=== PATIENT | male | born 1970 | race Caucasian/White ===

== ENCOUNTER 2022-05-07 21:59 | Emergency (ER) | payer OTHER, MEDICAID, SELFPAY ==
[2022-05-07 22:10] VITALS: BP 194/88; PULSE 104; RESP 20; TEMP 36.6; O2SAT 98
--- NOTE | 2022-05-08 00:29 | ED.ANXIETY ---
HPI - Anxiety General Chief Complaint: Anxiety Stated Complaint: emotional issues/stress Time Seen by Provider: 05/08/22 00:26 Source: patient Mode of arrival: Ambulatory Limitations: no limitations History of Present Illness HPI narrative: Patient is a 51-year-old male who is here for evaluation of anxiety and stress. Patient states that he was worried about a friend of his who lives on the streets who he could not find. He stated that when he becomes very stressed he states that his anxiety increases. Patient is somewhat tangential on answering questions. Related Data Allergies Allergy/AdvReac Type Severity Reaction Status Date / Time Penicillins Allergy Verified 05/08/22 00:44 Review of Systems Constitutional Constitutional: Reports system reviewed and no additional complaints, except as documented Psychiatric Psychiatric: Reports system reviewed and no additional complaints, except as documented Patient History Social History Smoking Status: Current every day smoker Smoking Status: Current every day smoker alcohol intake frequency: a few times a month Substance Use Type: marijuana and methamphetamine Exam Initial Vital Signs Initial Vital Signs: Vital Signs Temperature 97.9 F 05/07/22 22:10 Pulse Rate 104 H 05/07/22 22:10 Respiratory Rate 20 05/07/22 22:10 Blood Pressure 194/88 H 05/07/22 22:10 Pulse Oximetry 98 05/07/22 22:10 Oxygen Delivery Method Room Air 05/07/22 22:10 Const General: cooperative and No ill appearing HENMT Head: normal to inspection and normocephalic Resp Effort & Inspection: normal respiratory effort Cardio Rate: regular rate Neuro General: patient alert, patient awake and moves all extremities Psych Appearance: disheveled Speech and Movement: restless Mood: anxious mood Affect: animated Thought Content: no homicidality and suicidality Course Orders Ordered: Discontinued Medications Hydroxyzine Pamoate (Hydroxyzine Pamoate 25 Mg Capsule) 25 mg PO NOW ONE Stop: 05/08/22 00:31 Last Admin: 05/08/22 00:45 Dose: 25 mg Documented By: MARCIANO Vital Signs Vital signs: Vital Signs - 8 hr 05/07/22 22:10 Temperature 97.9 F Pulse Rate 104 H Respiratory Rate 20 Blood Pressure 194/88 H Pulse Oximetry 98 Oxygen Delivery Method Room Air MDM - Anxiety MDM Narrative Medical decision making narrative: Patient stated that he was feeling very anxious. He stated that Vistaril has helped him in the past and he was agreeable to this. Patient did spend a period of time sitting on the edge of the bed apparently talking to himself and then was able to lay down in the bed and rested for a period of time. He then got up and left the emergency department telling staff that he was going to go smoke. Patient was obviously feeling comfortable enough to leave and go smoke so discharge paperwork was printed. He then returned asked him to be checked back into the emergency department. I informed him that it was inappropriate for him just to stay in the emergency department to see if his friend were to show up. Patient was not suicidal. Not homicidal. I suspect that the patient has been using methamphetamine. No indication for continued observation in the emergency department. Patient was discharged. He refused to sign discharge paperwork. Discharge Plan Departure Patient Disposition: Home Clinical Impression: Anxiety Instructions: DI for Anxiety -- Adult Activity Restrictions/Additional Instructions: Recommend that you contact your primary doctor for a follow-up. Stand Alone Forms: Patient Portal/API
[2022-05-08] MEDS: hydrOXYzine pamoate 25 MG CAPSULE PO (00:45)
== END 2022-05-08 03:25 | disposition home or self-care (01) ==
PROVIDERS: Emergency Provider Emergency Medicine
DX: F41.9 Anxiety disorder, unspecified (principal)
CPT/HCPCS: 99283

== ENCOUNTER 2022-05-29 20:10 | Emergency (ER) | payer OTHER, MEDICAID, SELFPAY ==
[2022-05-29 20:18] VITALS: BP 167/93; PULSE 124; RESP 18; TEMP 37.8; O2SAT 97; BMI 28.7
--- NOTE | 2022-05-29 20:35 | ED_ITS ---
HPI - Psych General Chief Complaint: Psychiatric Symptoms Stated Complaint: anxiety Time Seen by Provider: 05/29/22 20:32 Source: patient Mode of arrival: Ambulatory History of Present Illness HPI Narrative: Patient is a 51-year-old male with a history of anxiety who is here with a friend who is also being seen in the emergency department. Patient decided to check in because of his anxiety related to his friend who is also being seen h ere. Other than the anxiety has no other specific complaints. He states that hydroxyzine has helped him in the past. Related Data Allergies Allergy/AdvReac Type Severity Reaction Status Date / Time Penicillins Allergy Verified 05/08/22 00:44 Review of Systems Cardiovascular Cardiovascular: Reports system reviewed and no additional complaints, except as documented Respiratory Respiratory: Reports system reviewed and no additional complaints, except as documented Gastrointestinal Gastrointestinal: Reports system reviewed and no additional complaints, except as documented Psychiatric Psychiatric: Reports system reviewed and no additional complaints, except as documented Patient History Social History Smoking Status: Current every day smoker Smoking Status: Current every day smoker tobacco type: cigarettes and cigars alcohol intake frequency: a few times a month Substance Use Type: does not use Exam Initial Vital Signs Initial Vital Signs: Vital Signs Temperature 100.0 F H 05/29/22 20:18 Pulse Rate 124 H 05/29/22 20:18 Respiratory Rate 18 05/29/22 20:18 Blood Pressure 167/93 H 05/29/22 20:18 Pulse Oximetry 97 05/29/22 20:18 Oxygen Delivery Method Room Air 05/29/22 20:18 HENMT Head: normal to inspection and normocephalic Resp Auscultation: clear to auscultation bilaterally Cardio Rate: regular rate Psych Other: Patient is cooperative. His obviously having some anxiety. Occasionally was tearful. Course Orders Ordered: Discontinued Medications Hydroxyzine Pamoate (Hydroxyzine Pamoate 25 Mg Capsule) 50 mg PO NOW ONE Stop: 05/29/22 20:36 Last Admin: 05/29/22 20:43 Dose: 50 mg Documented By: SRIDHAR Vital Signs Vital signs: Vital Signs - 8 hr 05/29/22 20:18 Temperature 100.0 F H Pulse Rate 124 H Respiratory Rate 18 Blood Pressure 167/93 H Pulse Oximetry 97 Oxygen Delivery Method Room Air MDM - Psych MDM Narrative Medical decision making narrative: Patient was given a dose of hydroxyzine and after period of time he states his anxiety is much better. Patient was able to show me his medications. He is prescription for olanzapine, trazodone and hydroxyzine. We went over how he should be taking these medications. He states that he does have refills of the medicines. Will discharge patient home. He was given return precautions. Discharge Plan Departure Patient Disposition: Home Clinical Impression: Acute anxiety Instructions: DI for Anxiety -- Adult Activity Restrictions/Additional Instructions: You have all of the medicines with you that you should be taking. Please take them as directed. Keep all of your scheduled medical appointments. Stand Alone Forms: Patient Portal/API
[2022-05-29] MEDS: hydrOXYzine pamoate 25 MG CAPSULE 50 MG PO (20:43)
== END 2022-05-29 22:36 | disposition home or self-care (01) ==
PROVIDERS: Emergency Provider Emergency Medicine
DX: F41.9 Anxiety disorder, unspecified (principal)
CPT/HCPCS: 99283

== ENCOUNTER 2022-07-05 21:49 | Emergency (ER) | payer OTHER, MEDICAID, SELFPAY ==
[2022-07-05 21:59] VITALS: BP 124/69; PULSE 94; RESP 18; TEMP 36.7; O2SAT 98; BMI 30.8
[2022-07-05 22:56] LABS: Add Manual Diff / Slide Review NO; Basophils Absolute Auto 100 /uL (0-100); Eosinophils Absolute Auto 100 /uL (0-450); Eosinophils Percent Auto 1.2 % (2-4); Hematocrit 38.7 % (41-53); Hemoglobin 13.4 g/dL (13.5-17.5); Lymphocytes Absolute Auto 2900 /uL (1100-4500); Lymphocytes Percent Auto 24.8 % (25-40); Mean Corpuscular HGB Conc 34.5 % (30-36); Mean Corpuscular Hemoglobin 30.3 PG (26-34); Mean Corpuscular Volume 87.6 fL (80-100); Monocytes Absolute Auto 1200 /uL (0-900); Monocytes Percent Auto 9.8 % (3-14); Neutrophils Absolute Auto 7500 /uL (1500-7000); Neutrophils Percent Auto 63.2 % (50-75); Platelet Count 328 X10^3/uL (150-400); Red Blood Cell Count 4.41 X10^6/uL (4.5-5.9); Red Cell Distribution Width 14.1 % (11.6-14.8); White Blood Cell Count 11.8 X10^3/uL (4.5-11.0)
[2022-07-05 23:00] LABS: Acetaminophen < 10 ug/mL (10-30); Alanine Aminotransferase 19 IU/L (<50); Albumin 4.2 g/dL (3.5-5.0); Albumin Globulin Ratio 1.2 (1.0-2.8); Alkaline Phosphatase 76 U/L (38-126); Aspartate Aminotransferase 30 IU/L (17-59); BUN Creatinine Ratio 27.3 (6-22); Bilirubin Total 2.5 mg/dL (0.2-1.3); Blood Urea Nitrogen 24 mg/dL (9-20); Calcium 8.7 mg/dL (8.4-10.2); Carbon Dioxide 25 mmol/L (22-32); Chloride 101 mmol/L (98-107); Estimated Glomerular Filt Rate > 60 mL/min (>60); Ethanol (ETOH) < 10 mg/dL; Globulin 3.6 g/dL (1.7-4.1); Glucose 101 mg/dL (70-100); HEMOLYSIS < 15 (0-50); Potassium 3.6 mmol/L (3.4-5.1); Salicylate < 1.0 mg/dL (<20); Sodium 136 mmol/L (137-145); Total Protein 7.8 g/dL (6.3-8.2)
[2022-07-05 23:27] LABS: Ictotest Urine Negative (Negative)
[2022-07-05 23:37] LABS: UR Morphine/Opiate cutoff 300 Negative (Negative); Ur Creatinine 50 (Normal); Ur Specific Gravity >1.030 (Normal); Urine Amphetamines Positive (Negative); Urine Barbiturates Negative (Negative); Urine Benzodiazepines Negative (Negative); Urine Cocaine Negative (Negative); Urine MDMA Positive (Negative); Urine Methadone Negative (Negative); Urine Methamphetamines Positive (Negative); Urine Phencyclidine Negative (Negative); Urine Tetrahydrocannabinol Positive (Negative); Urine Tricyclic Antidepressant Negative (Negative); Urine pH 6 (Normal)
[2022-07-05 23:38] LABS: Urine Oxycodone Negative (Negative)
[2022-07-05 23:57] LABS: Bacteria Urine None Seen; RBC Urine None Seen (0-5/HPF); WBC Urine 1-5/HPF (0-5/HPF)
[2022-07-05 23:58] LABS: Culture Indicated Urine Cult Not Indicated; Mucus Urine 2+ (Negative)
[2022-07-06] VITALS (13 sets, daily range): BP systolic 103–104; BP diastolic 59–69; PULSE 74–97; RESP 16–20; O2SAT 97–100
[2022-07-06 00:14] LABS: Free T4, Direct Thyroxine 1.63 ng/dL (0.78-2.19)
[2022-07-06 00:26] LABS: Thyroid Stimulating Hormone 4.43 uIU/mL (0.47-4.68)
--- NOTE | 2022-07-06 01:48 | PC.NURSE ---
When this tag writer asked patient why he came to the emergency department, patient replied with, I don't know. Patient does not make eye contact and will only mumble words back. Patient is visibly dischevelled.
--- NOTE | 2022-07-06 04:29 | ED_ITS ---
HPI - Psych General Chief Complaint: Toxicology Problem Stated Complaint: Mental health Time Seen by Provider: 07/06/22 01:42 Source: patient Mode of arrival: Ambulatory History of Present Illness HPI Narrative: This is a 51-year-old male with history of anxiety who is also currently homeless. Patient presents today states he did a lot of drugs including methamphetamines, he states he would a little bit of loss of time is feeling anxious and cold. Patient states no other complaints currently he is not having any thoughts of harming himself or others. He states he does occasionally have thoughts of harming himself but does not have a plan. He states he would reach out for assistance. Notes that he is currently been homeless he was living in his car but his car was taken away several days ago and he is just been walking not able to sleep for the last several days. Patient states he also does not have a coat and he has been feeling very cold. He denies any issues such as headaches, chest pain, shortness of breath, no nausea or vomiting no other GI or urinary symptoms. No numbness, tingling or weakness. Patient Related Data Allergies Allergy/AdvReac Type Severity Reaction Status Date / Time Penicillins Allergy Verified 05/08/22 00:44 Review of Systems Review of Systems ROS Unobtainable: All systems reviewed & are unremarkable except as noted in HPI and below Patient History Social History Smoking Status: Current every day smoker Smoking Status: Current every day smoker tobacco type: cigarettes and cigars alcohol intake frequency: a few times a month Substance Use Type: methamphetamine Exam Narrative Exam Narrative: GENERAL: Alert and oriented x three, disheveled. Mild distress. HEENT: Head normocephalic, atraumatic, EOMI, pupils reactive, face symmetric, moist mucous membranes NECK: Supple, full range of motion CARDIOVASCULAR: Regular rate and rhythm without murmurs, rubs or gallops. RESPIRATORY: Breath sounds equal bilaterally, no wheezes rales or rhonchi. ABDOMEN: Soft, nontender. Normoactive bowel sounds all 4 quadrants. No guarding or rebound, rigidity, no mass : No CVA tenderness EXTREMITIES: Normal range of motion, no clubbing or edema. Neurovascularly intact. NEUROLOGICAL: Cranial nerves II through XII grossly intact. Moving all extremities SKIN: Warm, dry, no petechiae, no rashes or lesions. PSYCH: Occasional suicidal thoughts, no ideation or intent currently. No homicidal thoughts. Occasional depression. No hallucinations. Initial Vital Signs Initial Vital Signs: Vital Signs Temperature 98.1 F 07/05/22 21:59 Pulse Rate 94 H 07/05/22 21:59 Respiratory Rate 18 07/05/22 21:59 Blood Pressure 124/69 07/05/22 21:59 Pulse Oximetry 98 07/05/22 21:59 Oxygen Delivery Method Room Air 07/05/22 21:59 Course Orders Ordered: ED Orders 07/05/22 22:05 Ictotest Urine Stat Urine Drug Screen, Rapid Stat Urine Microscopic Stat 07/05/22 22:07 Consult to COUNTER WAITRESS/WAITER - Vice President Of Sales Stat 07/05/22 22:30 Acetaminophen Stat Complete Blood Count AUTO DIFF Stat Comprehensive Metabolic Panel Stat Ethanol (ETOH) Stat Free T4, Direct Thyroxine Stat Salicylate Stat Thyroid Stimulating Hormone Stat Vital Signs Vital signs: Vital Signs - 8 hr 07/06/22 01:38 07/06/22 01:39 07/06/22 01:39 Pulse Rate 80 86 Respiratory Rate 16 Blood Pressure 104/69 104/69 Pulse Oximetry 100 99 07/06/22 02:00 07/06/22 02:30 07/06/22 03:00 Pulse Rate 80 80 79 Respiratory Rate 20 Blood Pressure Pulse Oximetry 99 98 98 07/06/22 03:30 07/06/22 04:00 07/06/22 04:30 Pulse Rate 80 79 78 Respiratory Rate Blood Pressure Pulse Oximetry 97 97 98 07/06/22 05:00 07/06/22 05:30 07/06/22 06:00 Pulse Rate 77 79 74 Respiratory Rate Blood Pressure Pulse Oximetry 98 97 98 07/06/22 06:30 Pulse Rate 74 Respiratory Rate 18 Blood Pressure Pulse Oximetry 97 MDM - Psych Lab Data 07/05/22 22:30 07/05/22 22:30 Labs: Lab Results 07/05/22 07/05/22 07/05/22 Range/Units 22:05 22:05 22:30 WBC 11.8 H (4.5-11.0) X10^3/uL RBC 4.41 L (4.5-5.9) X10^6/uL Hgb 13.4 L (13.5-17.5) g/dL Hct 38.7 L (41-53) % MCV 87.6 (80-100) fL MCH 30.3 (26-34) PG MCHC 34.5 (30-36) % RDW 14.1 (11.6-14.8) % Plt Count 328 (150-400) X10^3/uL Neut % (Auto) 63.2 (50-75) % Lymph % (Auto) 24.8 L (25-40) % Mobile % (Auto) 9.8 (3-14) % Eos % (Auto) 1.2 L (2-4) % Baso % (Auto) 1.0 (0-2) % Neut # (Auto) 7500 H (5147-1045) /uL Lymph # (Auto) 2900 (7412-7411) /uL Mobile # (Auto) 1200 H (0-900) /uL Eos # (Auto) 100 (0-450) /uL Baso # (Auto) 100 (0-100) /uL Sodium (137-145) mmol/L Potassium (3.4-5.1) mmol/L Chloride (98-107) mmol/L Carbon Dioxide (22-32) mmol/L BUN (9-20) mg/dL Creatinine (0.66-1.25) mg/dL Estimated GFR (>60) mL/min BUN/Creatinine Ratio (6-22) Glucose (70-100) mg/dL Calcium (8.4-10.2) mg/dL Total Bilirubin (0.2-1.3) mg/dL AST (17-59) IU/L ALT (<50) IU/L Alkaline Phosphatase (38-126) U/L Total Protein (6.3-8.2) g/dL Albumin (3.5-5.0) g/dL Globulin (1.7-4.1) g/dL Albumin/Globulin Ratio (1.0-2.8) TSH (0.47-4.68) uIU/mL Free T4 (0.78-2.19) ng/dL Ur Bilirubin Confirm Negative (Negative) Urine RBC None seen (0-5/HPF) Urine WBC 1-5/hpf (0-5/HPF) Urine Bacteria None seen (None) Urine Mucus 2+ H (Negative) Ur Culture Indicated? Cult not indicated Salicylates (<20) mg/dL U Opiates 300ng/mL cut Negative (Negative) Ur Oxycodone Screen Negative (Negative) Urine Methadone Screen Negative (Negative) Acetaminophen (10-30) ug/mL Ur Barbiturates Screen Negative (Negative) U Tricyclic Antidepress Negative (Negative) Ur Phencyclidine Scrn Negative (Negative) Ur Amphetamines Screen Positive H (Negative) U Methamphetamines Scrn Positive H (Negative) Ur MDMA Scrn (Ecstasy) Positive H (Negative) U Benzodiazepines Scrn Negative (Negative) Urine Cocaine Screen Negative (Negative) U Marijuana (THC) Screen Positive H (Negative) Ethyl Alcohol ( - 10) mg/dL 07/05/22 07/05/22 Range/Units 22:30 22:30 WBC (4.5-11.0) X10^3/uL RBC (4.5-5.9) X10^6/uL Hgb (13.5-17.5) g/dL Hct (41-53) % MCV (80-100) fL MCH (26-34) PG MCHC (30-36) % RDW (11.6-14.8) % Plt Count (150-400) X10^3/uL Neut % (Auto) (50-75) % Lymph % (Auto) (25-40) % Mobile % (Auto) (3-14) % Eos % (Auto) (2-4) % Baso % (Auto) (0-2) % Neut # (Auto) (9386-5161) /uL Lymph # (Auto) (9742-1762) /uL Mobile # (Auto) (0-900) /uL Eos # (Auto) (0-450) /uL Baso # (Auto) (0-100) /uL Sodium 136 L (137-145) mmol/L Potassium 3.6 (3.4-5.1) mmol/L Chloride 101 (98-107) mmol/L Carbon Dioxide 25 (22-32) mmol/L BUN 24 H (9-20) mg/dL Creatinine 0.88 (0.66-1.25) mg/dL Estimated GFR > 60 (>60) mL/min BUN/Creatinine Ratio 27.3 H (6-22) Glucose 101 H (70-100) mg/dL Calcium 8.7 (8.4-10.2) mg/dL Total Bilirubin 2.5 H (0.2-1.3) mg/dL AST 30 (17-59) IU/L ALT 19 (<50) IU/L Alkaline Phosphatase 76 (38-126) U/L Total Protein 7.8 (6.3-8.2) g/dL Albumin 4.2 (3.5-5.0) g/dL Globulin 3.6 (1.7-4.1) g/dL Albumin/Globulin Ratio 1.2 (1.0-2.8) TSH 4.43 (0.47-4.68) uIU/mL Free T4 1.63 (0.78-2.19) ng/dL Ur Bilirubin Confirm (Negative) Urine RBC (0-5/HPF) Urine WBC (0-5/HPF) Urine Bacteria (None) Urine Mucus (Negative) Ur Culture Indicated? Salicylates < 1.0 (<20) mg/dL U Opiates 300ng/mL cut (Negative) Ur Oxycodone Screen (Negative) Urine Methadone Screen (Negative) Acetaminophen < 10 (10-30) ug/mL Ur Barbiturates Screen (Negative) U Tricyclic Antidepress (Negative) Ur Phencyclidine Scrn (Negative) Ur Amphetamines Screen (Negative) U Methamphetamines Scrn (Negative) Ur MDMA Scrn (Ecstasy) (Negative) U Benzodiazepines Scrn (Negative) Urine Cocaine Screen (Negative) U Marijuana (THC) Screen (Negative) Ethyl Alcohol < 10 ( - 10) mg/dL Urine Dip Bedside Urine Glucose Negative Bedside Urine Bilirubin + 1 Bedside Urine Ketone +/- 5 Urine Specific [place] 1.03 Bedside Urine Occult Blood - Negative Bedside Urine pH 6 Bedside Urine Protein + 30 Bedside Urine Urobilinogen 1+ 2mg Bedside Urine Nitrite - Negative Bedside Urine Leukocytes - Negative Esterase MDM Narrative Medical decision making narrative: 51-year-old male with history of substance abuse, chronic homelessness who is had suicidal thoughts but no active intent or active thought currently. Patient is medically cleared he seeking more resources does not feel that he needs inpatient stay currently. Patient signed out to Dr. Knott while awaiting [facility] evaluation.
[2022-07-06] MEDS: LORazepam 0.5 MG TABLET 1 MG PO (10:41)
[2022-07-06] MEDS: OLANZapine ODT 10 MG TAB PO (11:08)
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
== END 2022-07-06 18:30 | disposition home or self-care (01) ==
PROVIDERS: Emergency Medicine; Emergency Provider Emergency Medicine
DX: F19.10 Other psychoactive substance abuse, uncomplicated (principal)
CPT/HCPCS: 36415; 80053; 80305; 80320; 80329; 81003; 81015; 84439; 84443; 85025; 99284; G0480

== ENCOUNTER 2022-08-21 04:34 | Emergency (ER) | payer OTHER, MEDICAID, SELFPAY ==
[2022-08-21 04:39] VITALS: BP 142/81; PULSE 89; RESP 18; TEMP 36.1; O2SAT 99; BMI 29.4
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
[2022-08-21 05:15] LABS: Ur Creatinine 200 (Normal); Ur Specific Gravity >1.025 (Normal); Urine pH 5 (Normal)
[2022-08-21 05:16] LABS: UR Morphine/Opiate cutoff 300 Negative (Negative); Urine Amphetamines Positive (Negative); Urine Barbiturates Negative (Negative); Urine Benzodiazepines Negative (Negative); Urine Cocaine Negative (Negative); Urine MDMA Positive (Negative); Urine Methadone Negative (Negative); Urine Methamphetamines Positive (Negative); Urine Oxycodone Negative (Negative); Urine Phencyclidine Negative (Negative); Urine Tetrahydrocannabinol Positive (Negative); Urine Tricyclic Antidepressant Negative (Negative)
== END 2022-08-21 05:24 | disposition home or self-care (01) ==
PROVIDERS: Emergency Provider Emergency Medicine
DX: F15.90 Other stimulant use, unspecified, uncomplicated (principal)
CPT/HCPCS: 80305; 99281; 99282

== ENCOUNTER 2022-08-26 02:11 | Emergency (ER) | payer OTHER, MEDICAID, SELFPAY ==
[2022-08-26 02:21] VITALS: BP 107/73; PULSE 87; RESP 18; TEMP 36.3; O2SAT 100; BMI 28.7
[2022-08-26 03:53] LABS: Add Manual Diff / Slide Review NO; Basophils Absolute Auto 100 /uL (0-100); Basophils Percent Auto 0.8 % (0-2); Eosinophils Absolute Auto 100 /uL (0-450); Eosinophils Percent Auto 1.5 % (2-4); Hematocrit 35.8 % (41-53); Hemoglobin 12.4 g/dL (13.5-17.5); Lymphocytes Absolute Auto 2500 /uL (1100-4500); Lymphocytes Percent Auto 27.5 % (25-40); Mean Corpuscular HGB Conc 34.6 % (30-36); Mean Corpuscular Volume 89.4 fL (80-100); Monocytes Absolute Auto 800 /uL (0-900); Monocytes Percent Auto 8.3 % (3-14); Neutrophils Absolute Auto 5700 /uL (1500-7000); Neutrophils Percent Auto 61.9 % (50-75); Platelet Count 354 X10^3/uL (150-400); Red Blood Cell Count 4.01 X10^6/uL (4.5-5.9); Red Cell Distribution Width 13.8 % (11.6-14.8); White Blood Cell Count 9.2 X10^3/uL (4.5-11.0)
[2022-08-26 04:05] LABS: Alanine Aminotransferase 17 IU/L (<50); Albumin 3.8 g/dL (3.5-5.0); Albumin Globulin Ratio 1.3 (1.0-2.8); Alkaline Phosphatase 67 U/L (38-126); Aspartate Aminotransferase 21 IU/L (17-59); BUN Creatinine Ratio 19.8 (6-22); Bilirubin Total 1.1 mg/dL (0.2-1.3); Blood Urea Nitrogen 18 mg/dL (9-20); Calcium 8.7 mg/dL (8.4-10.2); Carbon Dioxide 27 mmol/L (22-32); Chloride 102 mmol/L (98-107); Estimated Glomerular Filt Rate > 60 mL/min (>60); Ethanol (ETOH) < 10 mg/dL; Globulin 2.9 g/dL (1.7-4.1); Glucose 97 mg/dL (70-100); HEMOLYSIS < 15 (0-50); Potassium 3.6 mmol/L (3.4-5.1); Sodium 135 mmol/L (137-145); Total Protein 6.7 g/dL (6.3-8.2)
--- NOTE | 2022-08-26 04:25 | ED.PSYCH ---
HPI - Psych <Yvonne Reeves DO - Last Filed: 08/26/22 19:28> General Chief Complaint: Psychiatric Symptoms Stated Complaint: suicide thoughts Time Seen by Provider: 08/26/22 02:49 Source: patient Mode of arrival: Ambulatory History of Present Illness HPI Narrative: Patient is a 52-year-old male history of polysubstance abuse including methamphetamines and homelessness presents today feeling suicidal. He states that he would like to jump in front of cars. He reports that he has been working under cover and has been forced to take fentanyl and methamphetamine. His girlfriend has recently been incarcerated and she is not coming out. He reports that the police keep harassing him. He is tearful and loud. He says sometimes he hears voices not hearing voices now. He is willing to go to a mental health and detox facility. Related Data Allergies Allergy/AdvReac Type Severity Reaction Status Date / Time Penicillins Allergy Verified 05/08/22 00:44 Review of Systems <DO Miri Barajas Last Filed: 08/26/22 19:28> Review of Systems ROS Unobtainable: All systems reviewed & are unremarkable except as noted in HPI and below Patient History <Yvonne Reeves DO - Last Filed: 08/26/22 19:28> Social History Smoking Status: Current every day smoker Smoking Status: Current every day smoker tobacco type: cigarettes and cigars alcohol intake frequency: a few times a month Substance Use Type: methamphetamine Exam <DO Miri Barajas Last Filed: 08/26/22 19:28> Initial Vital Signs Initial Vital Signs: Vital Signs Temperature 97.4 F L 08/26/22 02:21 Pulse Rate 87 08/26/22 02:21 Respiratory Rate 18 08/26/22 02:21 Blood Pressure 107/73 08/26/22 02:21 Pulse Oximetry 100 08/26/22 02:21 Oxygen Delivery Method Room Air 08/26/22 02:21 GENERAL: Tearful, cooperative extremely poor hygiene CARDIOVASCULAR: peripheral pulses in tact, cap refill <2 sec RESPIRATORY: No respiratory distress, speaks in full sentences without difficulty EXTREMITIES: Normal range of motion, no clubbing or edema. Neurovascularly intact NEUROLOGICAL: Cranial nerves II through XII grossly intact. Normal gait and speech. SKIN: Warm, dry, no petechiae, no rashes or lesions. PSYCH: Thoughts of suicide with current intent no homicidal thoughts some audio hallucinations, mild paranoia, good insight <Patel Knott DO - Last Filed: 08/26/22 11:01> Initial Vital Signs Initial Vital Signs: Vital Signs Temperature 97.4 F L 08/26/22 02:21 Pulse Rate 87 08/26/22 02:21 Respiratory Rate 18 08/26/22 02:21 Blood Pressure 107/73 08/26/22 02:21 Pulse Oximetry 100 08/26/22 02:21 Oxygen Delivery Method Room Air 08/26/22 02:21 Course <Yvonne Reeves DO - Last Filed: 08/26/22 19:28> Orders Ordered: Discontinued Medications Lorazepam (Lorazepam 0.5 Mg Tablet) 1 mg PO NOW ONE Stop: 08/26/22 09:12 Last Admin: 08/26/22 09:19 Dose: 1 mg Documented By: JAVAD Vital Signs Vital signs: Vital Signs - 8 hr 08/26/22 02:21 Temperature 97.4 F L Pulse Rate 87 Respiratory Rate 18 Blood Pressure 107/73 Pulse Oximetry 100 Oxygen Delivery Method Room Air <Patel Knott DO - Last Filed: 08/26/22 11:01> Orders Ordered: Discontinued Medications Lorazepam (Lorazepam 0.5 Mg Tablet) 1 mg PO NOW ONE Stop: 08/26/22 09:12 Last Admin: 08/26/22 09:19 Dose: 1 mg Documented By: JAVAD Vital Signs Vital signs: Vital Signs - 8 hr 08/26/22 02:21 Temperature 97.4 F L Pulse Rate 87 Respiratory Rate 18 Blood Pressure 107/73 Pulse Oximetry 100 Oxygen Delivery Method Room Air MDM - Psych <Yvonne Reeves DO - Last Filed: 08/26/22 19:28> Lab Data 08/26/22 03:40 08/26/22 03:40 Labs: Lab Results 08/26/22 08/26/22 08/26/22 Range/Units 03:40 03:40 03:40 WBC 9.2 (4.5-11.0) X10^3/uL RBC 4.01 L (4.5-5.9) X10^6/uL Hgb 12.4 L (13.5-17.5) g/dL Hct 35.8 L (41-53) % MCV 89.4 (80-100) fL MCH 31.0 (26-34) PG MCHC 34.6 (30-36) % RDW 13.8 (11.6-14.8) % Plt Count 354 (150-400) X10^3/uL Neut % (Auto) 61.9 (50-75) % Lymph % (Auto) 27.5 (25-40) % [place] % (Auto) 8.3 (3-14) % Eos % (Auto) 1.5 L (2-4) % Baso % (Auto) 0.8 (0-2) % Neut # (Auto) 5700 (6438-7365) /uL Lymph # (Auto) 2500 (1114-6072) /uL [place] # (Auto) 800 (0-900) /uL Eos # (Auto) 100 (0-450) /uL Baso # (Auto) 100 (0-100) /uL Sodium 135 L (137-145) mmol/L Potassium 3.6 (3.4-5.1) mmol/L Chloride 102 (98-107) mmol/L Carbon Dioxide 27 (22-32) mmol/L BUN 18 (9-20) mg/dL Creatinine 0.91 (0.66-1.25) mg/dL Estimated GFR > 60 (>60) mL/min BUN/Creatinine Ratio 19.8 (6-22) Glucose 97 (70-100) mg/dL Calcium 8.7 (8.4-10.2) mg/dL Total Bilirubin 1.1 (0.2-1.3) mg/dL AST 21 (17-59) IU/L ALT 17 (<50) IU/L Alkaline Phosphatase 67 (38-126) U/L Total Protein 6.7 (6.3-8.2) g/dL Albumin 3.8 (3.5-5.0) g/dL Globulin 2.9 (1.7-4.1) g/dL Albumin/Globulin Ratio 1.3 (1.0-2.8) TSH 3.53 (0.47-4.68) uIU/mL U Opiates 300ng/mL cut (Negative) Ur Oxycodone Screen (Negative) Urine Methadone Screen (Negative) Ur Barbiturates Screen (Negative) U Tricyclic Antidepress (Negative) Ur Phencyclidine Scrn (Negative) Ur Amphetamines Screen (Negative) U Methamphetamines Scrn (Negative) Ur MDMA Scrn (Ecstasy) (Negative) U Benzodiazepines Scrn (Negative) Urine Cocaine Screen (Negative) U Marijuana (THC) Screen (Negative) Ethyl Alcohol < 10 ( - 10) mg/dL 08/26/22 Range/Units 06:45 WBC (4.5-11.0) X10^3/uL RBC (4.5-5.9) X10^6/uL Hgb (13.5-17.5) g/dL Hct (41-53) % MCV (80-100) fL MCH (26-34) PG MCHC (30-36) % RDW (11.6-14.8) % Plt Count (150-400) X10^3/uL Neut % (Auto) (50-75) % Lymph % (Auto) (25-40) % [place] % (Auto) (3-14) % Eos % (Auto) (2-4) % Baso % (Auto) (0-2) % Neut # (Auto) (5194-0073) /uL Lymph # (Auto) (5780-6240) /uL [place] # (Auto) (0-900) /uL Eos # (Auto) (0-450) /uL Baso # (Auto) (0-100) /uL Sodium (137-145) mmol/L Potassium (3.4-5.1) mmol/L Chloride (98-107) mmol/L Carbon Dioxide (22-32) mmol/L BUN (9-20) mg/dL Creatinine (0.66-1.25) mg/dL Estimated GFR (>60) mL/min BUN/Creatinine Ratio (6-22) Glucose (70-100) mg/dL Calcium (8.4-10.2) mg/dL Total Bilirubin (0.2-1.3) mg/dL AST (17-59) IU/L ALT (<50) IU/L Alkaline Phosphatase (38-126) U/L Total Protein (6.3-8.2) g/dL Albumin (3.5-5.0) g/dL Globulin (1.7-4.1) g/dL Albumin/Globulin Ratio (1.0-2.8) TSH (0.47-4.68) uIU/mL U Opiates 300ng/mL cut Negative (Negative) Ur Oxycodone Screen Negative (Negative) Urine Methadone Screen Negative (Negative) Ur Barbiturates Screen Negative (Negative) U Tricyclic Antidepress Negative (Negative) Ur Phencyclidine Scrn Negative (Negative) Ur Amphetamines Screen Positive H (Negative) U Methamphetamines Scrn Positive H (Negative) Ur MDMA Scrn (Ecstasy) Negative (Negative) U Benzodiazepines Scrn Negative (Negative) Urine Cocaine Screen Negative (Negative) U Marijuana (THC) Screen Positive H (Negative) Ethyl Alcohol ( - 10) mg/dL Urine Dip Bedside Urine Glucose Negative Bedside Urine Bilirubin - Negative Bedside Urine Ketone - Negative Urine Specific [place] 1.03 Bedside Urine Occult Blood - Negative Bedside Urine pH 5.5 Bedside Urine Protein - Negative Bedside Urine Urobilinogen - Negative Bedside Urine Nitrite - Negative Bedside Urine Leukocytes - Negative Esterase MDM Narrative Medical decision making narrative: Patient 52-year-old male currently voluntary for detox or mental facility. Does not meet involuntary criteria. Patient has such poor hygiene and foul smell that he showered in the emergency department. Patient has been sleeping and cooperative. Signed out to Dr. Knott for further disposition. <Patel Knott, - Last Filed: 08/26/22 11:01> Lab Data Labs: Lab Results 08/26/22 08/26/22 08/26/22 Range/Units 03:40 03:40 03:40 WBC 9.2 (4.5-11.0) X10^3/uL RBC 4.01 L (4.5-5.9) X10^6/uL Hgb 12.4 L (13.5-17.5) g/dL Hct 35.8 L (41-53) % MCV 89.4 (80-100) fL MCH 31.0 (26-34) PG MCHC 34.6 (30-36) % RDW 13.8 (11.6-14.8) % Plt Count 354 (150-400) X10^3/uL Neut % (Auto) 61.9 (50-75) % Lymph % (Auto) 27.5 (25-40) % [place] % (Auto) 8.3 (3-14) % Eos % (Auto) 1.5 L (2-4) % Baso % (Auto) 0.8 (0-2) % Neut # (Auto) 5700 (9570-8833) /uL Lymph # (Auto) 2500 (8236-2575) /uL [place] # (Auto) 800 (0-900) /uL Eos # (Auto) 100 (0-450) /uL Baso # (Auto) 100 (0-100) /uL Sodium 135 L (137-145) mmol/L Potassium 3.6 (3.4-5.1) mmol/L Chloride 102 (98-107) mmol/L Carbon Dioxide 27 (22-32) mmol/L BUN 18 (9-20) mg/dL Creatinine 0.91 (0.66-1.25) mg/dL Estimated GFR > 60 (>60) mL/min BUN/Creatinine Ratio 19.8 (6-22) Glucose 97 (70-100) mg/dL Calcium 8.7 (8.4-10.2) mg/dL Total Bilirubin 1.1 (0.2-1.3) mg/dL AST 21 (17-59) IU/L ALT 17 (<50) IU/L Alkaline Phosphatase 67 (38-126) U/L Total Protein 6.7 (6.3-8.2) g/dL Albumin 3.8 (3.5-5.0) g/dL Globulin 2.9 (1.7-4.1) g/dL Albumin/Globulin Ratio 1.3 (1.0-2.8) TSH 3.53 (0.47-4.68) uIU/mL U Opiates 300ng/mL cut (Negative) Ur Oxycodone Screen (Negative) Urine Methadone Screen (Negative) Ur Barbiturates Screen (Negative) U Tricyclic Antidepress (Negative) Ur Phencyclidine Scrn (Negative) Ur Amphetamines Screen (Negative) U Methamphetamines Scrn (Negative) Ur MDMA Scrn (Ecstasy) (Negative) U Benzodiazepines Scrn (Negative) Urine Cocaine Screen (Negative) U Marijuana (THC) Screen (Negative) Ethyl Alcohol < 10 ( - 10) mg/dL 08/26/22 Range/Units 06:45 WBC (4.5-11.0) X10^3/uL RBC (4.5-5.9) X10^6/uL Hgb (13.5-17.5) g/dL Hct (41-53) % MCV (80-100) fL MCH (26-34) PG MCHC (30-36) % RDW (11.6-14.8) % Plt Count (150-400) X10^3/uL Neut % (Auto) (50-75) % Lymph % (Auto) (25-40) % [place] % (Auto) (3-14) % Eos % (Auto) (2-4) % Baso % (Auto) (0-2) % Neut # (Auto) (1999-9809) /uL Lymph # (Auto) (0945-7588) /uL [place] # (Auto) (0-900) /uL Eos # (Auto) (0-450) /uL Baso # (Auto) (0-100) /uL Sodium (137-145) mmol/L Potassium (3.4-5.1) mmol/L Chloride (98-107) mmol/L Carbon Dioxide (22-32) mmol/L BUN (9-20) mg/dL Creatinine (0.66-1.25) mg/dL Estimated GFR (>60) mL/min BUN/Creatinine Ratio (6-22) Glucose (70-100) mg/dL Calcium (8.4-10.2) mg/dL Total Bilirubin (0.2-1.3) mg/dL AST (17-59) IU/L ALT (<50) IU/L Alkaline Phosphatase (38-126) U/L Total Protein (6.3-8.2) g/dL Albumin (3.5-5.0) g/dL Globulin (1.7-4.1) g/dL Albumin/Globulin Ratio (1.0-2.8) TSH (0.47-4.68) uIU/mL U Opiates 300ng/mL cut Negative (Negative) Ur Oxycodone Screen Negative (Negative) Urine Methadone Screen Negative (Negative) Ur Barbiturates Screen Negative (Negative) U Tricyclic Antidepress Negative (Negative) Ur Phencyclidine Scrn Negative (Negative) Ur Amphetamines Screen Positive H (Negative) U Methamphetamines Scrn Positive H (Negative) Ur MDMA Scrn (Ecstasy) Negative (Negative) U Benzodiazepines Scrn Negative (Negative) Urine Cocaine Screen Negative (Negative) U Marijuana (THC) Screen Positive H (Negative) Ethyl Alcohol ( - 10) mg/dL Urine Dip Bedside Urine Glucose Negative Bedside Urine Bilirubin - Negative Bedside Urine Ketone - Negative Urine Specific [place] 1.03 Bedside Urine Occult Blood - Negative Bedside Urine pH 5.5 Bedside Urine Protein - Negative Bedside Urine Urobilinogen - Negative Bedside Urine Nitrite - Negative Bedside Urine Leukocytes - Negative Esterase MDM Narrative Medical decision making narrative: Patient 52-year-old male currently voluntary for detox or mental facility. Does not meet involuntary criteria. Patient has such poor hygiene and foul smell that he showered in the emergency department. Patient has been sleeping and cooperative. Signed out to Dr. Knott for further disposition. Dr knott: Received turned over. If patient's history and physical exam. This morning patient states that he was feeling very anxious and was also still feeling suicidal. He was concerned that his bradycardia been stolen. He has does to call the police. The police did come to the emergency department to take a statement. The patient has been ambulatory. Is clinically sober. Is tolerating oral intake. At approximately 1100 hours patient stated that he was no longer feeling suicidal. He states that he did have a ride coming to the emergency department pick him up. He would like to be discharged. Patient currently does not meet criteria for an an involuntary detainment. Will discharge patient. Discharge Plan Departure Patient Disposition: Home Clinical Impression: Methamphetamine use Instructions: Substance Use Disorder Activity Restrictions/Additional Instructions: No driving for the next 24 hours or in the future if you partake in intoxicating substances. Return to the emergency department for new symptoms. Stand Alone Forms: Patient Portal/API
--- NOTE | 2022-08-26 04:31 | PC.NURSE ---
Pt encouraged to take a shower. Pt agreed to shower and brush teeth. fresh paper scrubs, deodorant and brief provided. Pt returned to room [facility], warm blankets provided.
[2022-08-26 04:44] LABS: TSH w/ Reflex to FT4 3.53 uIU/mL (0.47-4.68)
[2022-08-26 06:58] LABS: UR Morphine/Opiate cutoff 300 Negative (Negative); Ur Creatinine Normal (Normal); Ur Specific Gravity Normal (Normal); Urine Amphetamines Positive (Negative); Urine Barbiturates Negative (Negative); Urine Benzodiazepines Negative (Negative); Urine Cocaine Negative (Negative); Urine MDMA Negative (Negative); Urine Methadone Negative (Negative); Urine Methamphetamines Positive (Negative); Urine Oxycodone Negative (Negative); Urine Phencyclidine Negative (Negative); Urine Tetrahydrocannabinol Positive (Negative); Urine Tricyclic Antidepressant Negative (Negative); Urine pH Normal (Normal)
[2022-08-26] MEDS: LORazepam 0.5 MG TABLET 1 MG PO (09:19)
--- NOTE | 2022-08-26 09:35 | PC.NURSE ---
[employer] at bedside talking with pt, at pt's request. Pt currently is calm, will monitor for any escalation in pt behaviors
--- NOTE | 2022-08-26 11:08 | PC.NURSE ---
pt states he is no longer suicidal, Dr. Knott notified, pt discharged
== END 2022-08-26 11:09 | disposition home or self-care (01) ==
PROVIDERS: Emergency Medicine; Emergency Provider Emergency Medicine
DX: F15.10 Other stimulant abuse, uncomplicated (principal); R45.851 Suicidal ideations
CPT/HCPCS: 36415; 80053; 80305; 80320; 81003; 84443; 85025; 99284

== ENCOUNTER 2022-09-03 07:18 | Emergency (ER) | payer OTHER, MEDICAID, SELFPAY ==
[2022-09-03 07:23] VITALS: BP 182/88; PULSE 97; RESP 16; TEMP 37.2; O2SAT 97; BMI 30.1
--- NOTE | 2022-09-03 08:12 | DI.RAD.S_ITS ---
PROCEDURE: XR CHEST 1V INDICATIONS: SOB TECHNIQUE: One view of the chest was acquired. COMPARISON: [facility], CR, XR CHEST 1 VIEW, 04/19/2021, 20:37. FINDINGS: Surgical changes and devices: None. Lungs and pleura: Lungs are clear. No pleural effusions or pneumothorax. Mediastinum: Mediastinal contours appear normal. Heart size is normal. Bones and chest wall: No suspicious bony lesions. Overlying soft tissues appear unremarkable. IMPRESSION: No acute cardiopulmonary pathology. Dictated by: Jose Rodriguez M.D. on 09/03/2022 at 8:39 Approved by: Jose Rodriguez M.D. on 09/03/2022 at 8:39
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
--- NOTE | 2022-09-03 08:53 | PC.NURSE ---
assessed by MD without RN involvement
== END 2022-09-03 08:54 | disposition home or self-care (01) ==
PROVIDERS: Emergency Provider Emergency Medicine
DX: R06.02 Shortness of breath (principal)
CPT/HCPCS: 71045; 99282

== ENCOUNTER 2022-09-20 22:35 | Emergency (ER) | payer OTHER, MEDICAID, SELFPAY ==
[2022-09-20 23:00] VITALS: BP 150/80; PULSE 90; RESP 18; TEMP 36.6; O2SAT 98; BMI 28.7
--- NOTE | 2022-09-21 00:41 | ED.ANXIETY ---
HPI - Anxiety General Chief Complaint: Anxiety Stated Complaint: ate edibles- feels unsafe. Time Seen by Provider: 09/21/22 00:04 Source: patient Mode of arrival: EMS History of Present Illness HPI narrative: Patient is a 52-year-old male. Well known to myself in this department. He is homeless and has history of drug abuse. He is brought in by EMS stating that he ?does not feel safe? this is a common presentation for him. He stated that he did do meth and also opioids. It was initially reported that he also had some marijuana edibles and afterwards started to feel very anxious but he states that they were just ?regular cookies? he also states that he is having nausea. Related Data Allergies Allergy/AdvReac Type Severity Reaction Status Date / Time Penicillins Allergy Verified 05/08/22 00:44 Review of Systems Gastrointestinal Gastrointestinal: Reports system reviewed and no additional complaints, except as documented Psychiatric Psychiatric: Reports system reviewed and no additional complaints, except as documented Patient History Social History Smoking Status: Current every day smoker Smoking Status: Current every day smoker tobacco type: cigarettes and cigars alcohol intake frequency: a few times a month Substance Use Type: opiates and methamphetamine Exam Initial Vital Signs Initial Vital Signs: Vital Signs Temperature 98 F 09/20/22 23:00 Pulse Rate 90 09/20/22 23:00 Respiratory Rate 18 09/20/22 23:00 Blood Pressure 150/80 H 09/20/22 23:00 Pulse Oximetry 98 09/20/22 23:00 Oxygen Delivery Method Room Air 09/20/22 23:00 Resp Effort & Inspection: normal respiratory effort Cardio Rate: regular rate GI Inspection: normal to inspection Psych Appearance: disheveled Speech and Movement: pressured speech Course Orders Ordered: Discontinued Medications Ondansetron HCl (Ondansetron 4 Mg Odt) 4 mg SL NOW ONE Stop: 09/21/22 00:42 Vital Signs Vital signs: Vital Signs - 8 hr 09/20/22 23:00 Temperature 98 F Pulse Rate 90 Respiratory Rate 18 Blood Pressure 150/80 H Pulse Oximetry 98 Oxygen Delivery Method Room Air MDM - Anxiety MDM Narrative Medical decision making narrative: Patient is disheveled which is his baseline. He does admit to smoking methamphetamine and also doing opioids. His exam is unremarkable. Will provide nausea medication. Will discharge patient home. Discharge Plan Departure Patient Disposition: Home Clinical Impression: Nausea Instructions: DI for Nausea -- Adult Referrals: Miscellaneous,Doctor, MD [Primary Care Provider] - Stand Alone Forms: Patient Portal/API
[2022-09-21] MEDS: ONDANSETRON 4 MG ODT SL (00:52)
== END 2022-09-21 01:05 | disposition home or self-care (01) ==
PROVIDERS: Emergency Provider Emergency Medicine
DX: R11.0 Nausea (principal); F11.10 Opioid abuse, uncomplicated
CPT/HCPCS: 99282; 99283

== ENCOUNTER 2022-09-28 19:51 | Emergency (ER) | payer OTHER, MEDICAID, SELFPAY ==
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
== END 2022-09-28 20:17 | disposition left against medical advice (07) ==
PROVIDERS: Emergency Provider Emergency Medicine
DX: R45.1 Restlessness and agitation (principal)
CPT/HCPCS: 99281

== ENCOUNTER 2022-11-16 19:48 | Emergency (ER) | payer OTHER, MEDICAID, SELFPAY ==
[2022-11-16] MEDS: diphenhydrAMINE 50 MG/ML VIAL IM (20:19)
[2022-11-16 20:20] VITALS: BP 176/129; PULSE 134; RESP 17; TEMP 37.1; O2SAT 97
[2022-11-16] MEDS: HALOPERIDOL 5 MG/ML VIAL IM (20:20)
[2022-11-16] MEDS: LORazepam 2 MG/ML INJ IM (20:20)
[2022-11-16 21:00] VITALS: BP 112/79; PULSE 107; RESP 18; O2SAT 95
--- NOTE | 2022-11-16 21:00 | PC.NURSE ---
Pt released from police custody at this time. No longer handcuffed. Pt appears subdued. Resting on stretcher. No longer yelling obscenities. 1:[address]
[2022-11-16 21:10] LABS: Add Manual Diff / Slide Review NO; Basophils Absolute Auto 100 /uL (0-100); Basophils Percent Auto 0.6 % (0-2); Eosinophils Absolute Auto 0 /uL (0-450); Eosinophils Percent Auto 0.3 % (2-4); Hematocrit 39.2 % (41-53); Hemoglobin 13.3 g/dL (13.5-17.5); Lymphocytes Absolute Auto 1300 /uL (1100-4500); Lymphocytes Percent Auto 14.7 % (25-40); Mean Corpuscular Hemoglobin 30.5 PG (26-34); Mean Corpuscular Volume 89.6 fL (80-100); Monocytes Absolute Auto 1000 /uL (0-900); Monocytes Percent Auto 11.3 % (3-14); Neutrophils Absolute Auto 6600 /uL (1500-7000); Neutrophils Percent Auto 73.1 % (50-75); Platelet Count 254 X10^3/uL (150-400); Red Blood Cell Count 4.37 X10^6/uL (4.5-5.9); Red Cell Distribution Width 13.7 % (11.6-14.8)
[2022-11-16 21:22] LABS: Alanine Aminotransferase 28 IU/L (<50); Albumin 4.2 g/dL (3.5-5.0); Albumin Globulin Ratio 1.3 (1.0-2.8); Alkaline Phosphatase 82 U/L (38-126); Aspartate Aminotransferase 55 IU/L (17-59); BUN Creatinine Ratio 18.1 (6-22); Bilirubin Total 2.3 mg/dL (0.2-1.3); Blood Urea Nitrogen 17 mg/dL (9-20); Calcium 9.6 mg/dL (8.4-10.2); Carbon Dioxide 19 mmol/L (22-32); Chloride 111 mmol/L (98-107); Estimated Glomerular Filt Rate > 60 mL/min (>60); Ethanol (ETOH) < 10 mg/dL; Globulin 3.2 g/dL (1.7-4.1); Glucose 143 mg/dL (70-100); Potassium 3.9 mmol/L (3.4-5.1); Sodium 141 mmol/L (137-145); Total Protein 7.4 g/dL (6.3-8.2)
[2022-11-16 21:24] LABS: HEMOLYSIS 51 (0-50)
[2022-11-16 23:28] VITALS: BP 101/64; PULSE 84; RESP 14; O2SAT 97
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
[2022-11-17 01:39] LABS: Appearance Urine UA CLEAR; Bilirubin Urine UA NEGATIVE (NEGATIVE); Glucose Urine UA NEGATIVE (Negative); Ketones Urine UA NEGATIVE (NEGATIVE); Leukocyte Esterase Urine UA NEGATIVE (NEGATIVE); Nitrite Urine UA NEGATIVE (Negative); Occult Blood Urine UA NEGATIVE (Negative); Protein Urine UA TRACE (Negative); Specific Gravity Urine UA >=1.030 (1.000-1.035); pH Urine UA 5.5 (4.5-8.0)
[2022-11-17 01:40] LABS: UR Morphine/Opiate cutoff 300 Negative (Negative); Ur Creatinine Normal (Normal); Ur Specific Gravity Normal (Normal); Urine Amphetamines Positive (Negative); Urine Barbiturates Negative (Negative); Urine Cocaine Negative (Negative); Urine MDMA Negative (Negative); Urine Methamphetamines Positive (Negative); Urine Phencyclidine Negative (Negative); Urine Tetrahydrocannabinol Positive (Negative); Urine pH Normal (Normal)
[2022-11-17 01:41] LABS: Urine Benzodiazepines Positive (Negative); Urine Methadone Negative (Negative); Urine Oxycodone Negative (Negative); Urine Tricyclic Antidepressant Negative (Negative)
[2022-11-17 01:42] LABS: Color Urine UA Dark Yellow
[2022-11-17 01:46] LABS: Amorphous Sediment Urine 1+; Bacteria Urine None Seen; Hyaline Casts Urine 0-1/LPF; Mucus Urine 2+ (Negative); RBC Urine 0-1/HPF (0-5/HPF); Squamous Epithelial Cell Urine 0-1 /HPF (0-5/HPF); WBC Urine 0-1/HPF (0-5/HPF)
[2022-11-17 01:47] LABS: Culture Indicated Urine Cult Not Indicated
== END 2022-11-17 05:19 | disposition home or self-care (01) ==
PROVIDERS: Emergency Provider Emergency Medicine
DX: F23 Brief psychotic disorder (principal)
CPT/HCPCS: 36415; 80053; 80305; 80320; 81001; 81003; 85025; 96372; 99284; J1200; J1630; J2060

== ENCOUNTER 2022-12-07 02:49 | Emergency (ER) | payer OTHER, MEDICAID, SELFPAY ==
--- NOTE | 2022-12-07 03:46 | PC.NURSE ---
Per registration, pt seen left with another patient. Vehicle no longer in hospital parking lot.
== END 2022-12-07 03:47 | disposition left against medical advice (07) ==
PROVIDERS: Emergency Provider Emergency Medicine

== ENCOUNTER 2022-12-15 04:21 | Emergency (ER) | payer OTHER, MEDICAID, SELFPAY ==
[2022-12-15 04:28] VITALS: BP 177/100; PULSE 107; RESP 18; TEMP 36.1; O2SAT 98; BMI 28.7
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
[2022-12-15] MEDS: hydrOXYzine pamoate 25 MG CAPSULE PO (04:42)
[2022-12-15 05:12] VITALS: BP 129/91; PULSE 96; RESP 18; O2SAT 100
== END 2022-12-15 05:14 | disposition home or self-care (01) ==
PROVIDERS: Emergency Provider Emergency Medicine
DX: F41.9 Anxiety disorder, unspecified (principal)
CPT/HCPCS: 99283

== ENCOUNTER 2022-12-21 13:02 | Emergency (ER) | payer OTHER, MEDICAID, SELFPAY ==
[2022-12-21 13:03] VITALS: BP 170/94; PULSE 92; RESP 16; TEMP 36.6; O2SAT 100
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
== END 2022-12-21 13:23 | disposition home or self-care (01) ==
PROVIDERS: Emergency Provider Emergency Medicine
DX: T50.905A Adverse effect of unspecified drugs, medicaments and biological substances, initial encounter (principal)
CPT/HCPCS: 99281

== ENCOUNTER 2022-12-21 14:08 | Emergency (ER) | payer OTHER, MEDICAID, SELFPAY ==
[2022-12-21 14:14] VITALS: PULSE 89; RESP 16; TEMP 36.8; O2SAT 100
--- NOTE | 2022-12-21 14:18 | PC.NURSE ---
Pt states that he needs to see another pt currently in ED for purposes of his investigation. Verbally aggressive when redirected.
--- NOTE | 2022-12-21 15:43 | ED.RECABL ---
HPI - Recheck/Abnormal Lab/Rx General Chief Complaint: Recheck/Abnormal Lab/Rx Stated Complaint: not feeling well/did bad drugs Time Seen by Provider: 12/21/22 14:17 Source: patient Mode of arrival: Ambulatory History of Present Illness HPI narrative: Patient 52-year-old male returns wanting to be evaluated. He is concerned that he ingested drugs. He is a known methamphetamine and opiate abuser. He is also asking questions again about his girlfriend who is in in the ED. Vitals again are stable. At this time he is medically cleared and screening exam is done. Related Data Allergies Allergy/AdvReac Type Severity Reaction Status Date / Time Penicillins Allergy Verified 11/16/22 20:20 Review of Systems Review of Systems ROS Unobtainable: All systems reviewed & are unremarkable except as noted in HPI and below Patient History Social History Smoking Status: Current every day smoker Smoking Status: Current every day smoker tobacco type: cigarettes and cigars alcohol intake frequency: a few times a month Substance Use Type: opiates and methamphetamine Exam Initial Vital Signs Initial Vital Signs: Vital Signs Temperature 98.2 F 12/21/22 14:14 Pulse Rate 89 12/21/22 14:14 Respiratory Rate 16 12/21/22 14:14 Pulse Oximetry 100 12/21/22 14:14 Oxygen Delivery Method Room Air 12/21/22 14:14 GENERAL: Disheveled erratic CARDIOVASCULAR: peripheral pulses in tact, cap refill <2 sec RESPIRATORY: No respiratory distress, speaks in full sentences without difficulty ABDOMEN: Soft, nontender, no guarding or rebound EXTREMITIES: Normal range of motion, no clubbing or edema. Neurovascularly intact NEUROLOGICAL: Cranial nerves II through XII grossly intact. Normal gait and speech. SKIN: Warm, dry, no petechiae, no rashes or lesions. Course Vital Signs Vital signs: Vital Signs - 8 hr 12/21/22 14:14 Temperature 98.2 F Pulse Rate 89 Respiratory Rate 16 Pulse Oximetry 100 Oxygen Delivery Method Room Air MDM - Recheck/Abnormal Lab/Rx MDM Narrative Medical decision making narrative: Patient vitals are stable concerned about drugs he ingested and his girlfriend who is in the ED. He is already been removed by police once today. He has no obvious medical emergency or complaint. Medical screening exam is complete. Discharge Plan Departure Patient Disposition: Home Clinical Impression: No problem, feared complaint unfounded Referrals: Miscellaneous,Doctor, MD [Primary Care Provider] - Stand Alone Forms: Patient Portal/API
== END 2022-12-21 14:18 | disposition home or self-care (01) ==
PROVIDERS: Emergency Provider Emergency Medicine
DX: T50.905A Adverse effect of unspecified drugs, medicaments and biological substances, initial encounter (principal)
CPT/HCPCS: 99281; 99282

== ENCOUNTER 2022-12-23 01:38 | Emergency (ER) | payer OTHER, MEDICAID, SELFPAY ==
--- NOTE | 2022-12-23 01:53 | PC.NURSE ---
Escorted from facility by [employer].
--- NOTE | 2022-12-23 01:58 | ED.PSYCH ---
HPI - Psych General Chief Complaint: Psychiatric Symptoms Stated Complaint: emotional crisis Time Seen by Provider: 12/23/22 01:58 History of Present Illness HPI Narrative: 52-year-old male presents with for evaluation. Patient describes suicidal ideation. Was here 2 times during day. Has a history of methamphetamine and opiate abuse. Patient is concerned about his girlfriend who is also known to the department. Patient states he has suicidal thoughts, denies intent. He does not wish for inpatient placement. He states he would like to spend the night here. Patient is medically cleared. Related Data Allergies Allergy/AdvReac Type Severity Reaction Status Date / Time Penicillins Allergy Verified 11/16/22 20:20 Review of Systems Review of Systems ROS Unobtainable: All systems reviewed & are unremarkable except as noted in HPI and below Patient History Social History Smoking Status: Current every day smoker Smoking Status: Current every day smoker tobacco type: cigarettes and cigars alcohol intake frequency: a few times a month Substance Use Type: opiates and methamphetamine Exam Narrative Exam Narrative: GENERAL: Alert and oriented x three, disheveled. HEENT: Head normocephalic, atraumatic, EOMI, pupils reactive, face symmetric, moist mucous membranes NECK: Supple, full range of motion CARDIOVASCULAR: Cap refill less than 2 seconds. RESPIRATORY: No respiratory distress, speaks in full sentences. EXTREMITIES: Normal range of motion, Neurovascularly intact NEUROLOGICAL: Cranial nerves II through XII grossly intact. Moving all extremities. Normal gait. SKIN: Warm, dry, no petechiae, no rashes or lesions. PSYCH: Suicidal ideation, does not describe intent. MDM - Psych MDM Narrative Medical decision making narrative: Patient seen and evaluated, patient presents with 3rd visit in the last 24 hours, patient states his suicidal ideation, denies any intent. Denies intent to harm others. Patient does not meet criteria at this time for some voluntary placement. He is not seeking voluntary placement. He does request does sleep for the night in the emergency department. Patient medically cleared. Discharge Plan Departure Patient Disposition: Home Clinical Impression: Suicidal thoughts Referrals: Miscellaneous,Doctor, [Primary Care Provider] - Stand Alone Forms: Patient Portal/API
== END 2022-12-23 02:00 | disposition home or self-care (01) ==
PROVIDERS: Emergency Provider Emergency Medicine
DX: R45.851 Suicidal ideations (principal)

== ENCOUNTER 2022-12-23 08:00 | Emergency (ER) | payer OTHER, MEDICAID, SELFPAY ==
[2022-12-23 08:08] VITALS: BP 120/79; PULSE 93; RESP 16; TEMP 36.6; O2SAT 99; BMI 24.3
--- NOTE | 2022-12-23 08:16 | ED.PSYCH ---
HPI - Psych General Chief Complaint: Psychiatric Symptoms Stated Complaint: side effects of drug use but not using Time Seen by Provider: 12/23/22 08:16 History of Present Illness HPI Narrative: Patient 52-year-old male well known to myself in this facility history of substance abuse, he has been seen here 3 times in the last 2 days this is his 4th visit. He was seen early this morning around 2:00 a.m. with some suicidal ideations. Today he is denying any suicidal ideation and homicidal ideation. He reports having hallucinations he is quite tearful. He does not want placement he feels like he has been exposed to drugs but denies any current drug use. I saw him twice 2 days ago this is a very different presentation than 2 days ago. But not wanting inpatient treatment. Related Data Allergies Allergy/AdvReac Type Severity Reaction Status Date / Time Penicillins Allergy Verified 11/16/22 20:20 Patient History Social History Smoking Status: Current every day smoker Smoking Status: Current every day smoker tobacco type: cigarettes and cigars alcohol intake frequency: a few times a month Substance Use Type: opiates and methamphetamine Exam Initial Vital Signs Initial Vital Signs: Vital Signs Temperature 98 F 12/23/22 08:08 Pulse Rate 93 H 12/23/22 08:08 Respiratory Rate 16 12/23/22 08:08 Blood Pressure 120/79 12/23/22 08:08 Pulse Oximetry 99 12/23/22 08:08 Oxygen Delivery Method Room Air 12/23/22 08:08 GENERAL: Alert tearful 52-year-old male slightly disheveled, but seems clean CARDIOVASCULAR: peripheral pulses in tact, cap refill <2 sec RESPIRATORY: No respiratory distress, speaks in full sentences without difficulty EXTREMITIES: Normal range of motion, no clubbing or edema. Neurovascularly intact NEUROLOGICAL: Cranial nerves II through XII grossly intact. Normal gait and speech. SKIN: Warm, dry, no petechiae, no rashes or lesions. Course Vital Signs Vital signs: Vital Signs - 8 hr 12/23/22 08:08 Temperature 98 F Pulse Rate 93 H Respiratory Rate 16 Blood Pressure 120/79 Pulse Oximetry 99 Oxygen Delivery Method Room Air MDM - Psych MDM Narrative Medical decision making narrative: Patient having increased ED visits tearful today different than he was 2 days ago. Not wanting inpatient treatment not suicidal or homicidal at this time though he was earlier this morning. Encouraged him detox gave him [facility] resources. Not gravely disabled at this time. Vitals are stable he is afebrile. Discharge Plan Departure Patient Disposition: Home Clinical Impression: Acute paranoia, Drug use disorder Instructions: DI for Substance Use Disorder Activity Restrictions/Additional Instructions: *You have been diagnosed with paranoia *What to do: At this time I strongly encourage you to go to detox and reach out to [facility]. You have been given resources for both *Continue to take medications as directed *Follow up with your primary care provider in 2-3 days or call [phone] *Return to ER if you should have any new, worsening or concerning symptoms Referrals: Theresa,Doctor, [Primary Care Provider] - Stand Alone Forms: Patient Portal/API
== END 2022-12-23 08:25 | disposition home or self-care (01) ==
PROVIDERS: Emergency Provider Emergency Medicine
DX: F22 Delusional disorders (principal); F19.90 Other psychoactive substance use, unspecified, uncomplicated
CPT/HCPCS: 99281; 99283

== ENCOUNTER 2023-02-25 17:35 | Emergency (ER) | payer OTHER, MEDICAID, SELFPAY ==
[2023-02-25 17:42] VITALS: BP 165/78; PULSE 89; RESP 16; TEMP 36.4; O2SAT 98; BMI 28.7
[2023-02-25 18:53] LABS: COVID19 -Nasal RAPID Negative (Negative)
--- NOTE | 2023-02-25 19:44 | ED.NAVMDI ---
HPI - Nausea/Vomiting/Diarrhea General Chief complaint: Nausea/Vomiting/Diarrhea Stated complaint: vomiting Time Seen by Provider: 02/25/23 19:23 Source: patient Mode of arrival: Ambulatory History of Present Illness HPI Narrative: Patient is a 52-year-old male. He was well known to my self. He is an individual that has housing stability and also known drug abuse. He states that he was concerned that maybe he has COVID. No chest pain or shortness of breath for sore throat although he has had some nausea and vomiting. No abdominal pain. No skin rashes. He was here in the emergency department with a family member decided to check in to get ?checked out? Related Data Allergies Allergy/AdvReac Type Severity Reaction Status Date / Time Penicillins Allergy Verified 11/16/22 20:20 Review of Systems Constitutional Constitutional: Reports system reviewed and no additional complaints, except as documented ENT Ears, Nose, Mouth, and Throat: Reports system reviewed and no additional complaints, except as documented Respiratory Respiratory: Reports system reviewed and no additional complaints, except as documented Gastrointestinal Gastrointestinal: Reports system reviewed and no additional complaints, except as documented Musculoskeletal Musculoskeletal: Reports system reviewed and no additional complaints, except as documented Integumentary/Breasts Skin/Breast: Reports system reviewed and no additional complaints, except as documented Patient History Social History Smoking Status: Current every day smoker Smoking Status: Current every day smoker tobacco type: cigarettes and cigars alcohol intake frequency: a few times a month Substance Use Type: opiates and methamphetamine Exam Initial Vital Signs Initial Vital Signs: Vital Signs Temperature 97.6 F 02/25/23 17:42 Pulse Rate 89 02/25/23 17:42 Respiratory Rate 16 02/25/23 17:42 Blood Pressure 165/78 H 02/25/23 17:42 Pulse Oximetry 98 02/25/23 17:42 Oxygen Delivery Method Room Air 02/25/23 17:42 HENMT Head: normal to inspection and normocephalic Resp Effort & Inspection: normal respiratory effort Auscultation: clear to auscultation bilaterally Cardio Rate: regular rate Rhythm: regular rhythm GI Inspection: normal to inspection and non-distended Skin General: no rashes or lesions noted Neuro General: patient alert and patient awake Extrem General: normal to inspection Course Orders Ordered: ED Orders 02/25/23 17:54 COVID19 -Nasal RAPID Stat Discontinued Medications Ondansetron HCl (Ondansetron 4 Mg Odt) 4 mg SL NOW ONE Stop: 02/25/23 19:45 Last Admin: 02/25/23 19:50 Dose: 4 mg Documented By: BASHIR Ondansetron HCl (Ondansetron 4 Mg Odt Prepack) 1 bottle MISC DIRECTED ONE Stop: 02/25/23 19:45 Last Admin: 02/25/23 19:50 Dose: 1 bottle Documented By: BASHIR Vital Signs Vital signs: Vital Signs - 8 hr 02/25/23 17:42 Temperature 97.6 F Pulse Rate 89 Respiratory Rate 16 Blood Pressure 165/78 H Pulse Oximetry 98 Oxygen Delivery Method Room Air MDM - Nausea/Vomiting/Diarrhea Lab Data Attestation: I reviewed the patient's lab results. Labs: Lab Results 02/25/23 Range/Units 17:54 SARS-CoV-2 (PCR) Negative (Negative) MDM Narrative Medical decision making narrative: Patient is COVID negative. Has a benign exam. Unremarkable vital signs. Will send home with a prescription for Zofran. No indication for labs or IV fluids. He is not clinically dehydrated. Patient expressed his gratitude for checking for COVID. He was very calm during this visit. He was given return precautions. He expressed understanding and agreement with plan. Discharge Plan Departure Patient Disposition: Home Clinical Impression: Nausea Instructions: DI for Nausea -- Adult Activity Restrictions/Additional Instructions: Recommend you use the Zofran/ondansetron as needed for the nausea. Also recommend a bland diet. Return to the emergency department for new symptoms. Referrals: Miscellaneous,Doctor, [Primary Care Provider] - Stand Alone Forms: Patient Portal/API
[2023-02-25] MEDS: ONDANSETRON 4 MG ODT SL (19:50)
[2023-02-25] MEDS: ONDANSETRON 4 MG ODT PREPACK 1 BOTTLE MISC (19:50)
== END 2023-02-25 19:53 | disposition home or self-care (01) ==
PROVIDERS: Emergency Provider Emergency Medicine
DX: R11.0 Nausea (principal); Z20.822 Contact with and (suspected) exposure to COVID-19
CPT/HCPCS: 87635; 99283; C9803

== ENCOUNTER 2023-03-01 00:18 | Emergency (ER) | payer OTHER, MEDICAID, SELFPAY ==
[2023-03-01 00:29] VITALS: BP 153/110; PULSE 124; RESP 18; TEMP 35.7; O2SAT 100; BMI 28.7
== END 2023-03-01 00:38 | disposition left against medical advice (07) ==
PROVIDERS: Emergency Provider Emergency Medicine
CPT/HCPCS: 99281

== ENCOUNTER 2023-04-08 14:38 | Emergency (ER) | payer OTHER, MEDICAID, SELFPAY ==
[2023-04-08 14:45] VITALS: BP 127/81; PULSE 96; RESP 22; TEMP 36.3; O2SAT 100; BMI 26.5
[2023-04-08] MEDS: ONDANSETRON 4 MG ODT PO (15:55)
[2023-04-08 17:44] LABS: Add Manual Diff / Slide Review NO; Basophils Absolute Auto 100 /uL (0-100); Basophils Percent Auto 0.7 % (0-2); Eosinophils Absolute Auto 300 /uL (0-450); Eosinophils Percent Auto 2.7 % (2-4); Hematocrit 39.2 % (41-53); Hemoglobin 13.3 g/dL (13.5-17.5); Lymphocytes Absolute Auto 1500 /uL (1100-4500); Lymphocytes Percent Auto 15.4 % (25-40); Mean Corpuscular Hemoglobin 29.9 PG (26-34); Mean Corpuscular Volume 88.1 fL (80-100); Monocytes Absolute Auto 800 /uL (0-900); Monocytes Percent Auto 8.4 % (3-14); Neutrophils Absolute Auto 7100 /uL (1500-7000); Neutrophils Percent Auto 72.8 % (50-75); Platelet Count 255 X10^3/uL (150-400); Red Blood Cell Count 4.45 X10^6/uL (4.5-5.9); Red Cell Distribution Width 13.9 % (11.6-14.8); White Blood Cell Count 9.7 X10^3/uL (4.5-11.0)
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
[2023-04-08 17:57] LABS: Alanine Aminotransferase 14 IU/L (<50); Albumin 3.9 g/dL (3.5-5.0); Albumin Globulin Ratio 1.2 (1.0-2.8); Alkaline Phosphatase 79 U/L (38-126); Aspartate Aminotransferase 22 IU/L (17-59); BUN Creatinine Ratio 33.8 (6-22); Bilirubin Total 0.8 mg/dL (0.2-1.3); Blood Urea Nitrogen 27 mg/dL (9-20); Calcium 8.7 mg/dL (8.4-10.2); Carbon Dioxide 25 mmol/L (22-32); Chloride 104 mmol/L (98-107); Estimated Glomerular Filt Rate > 60 mL/min (>60); Globulin 3.2 g/dL (1.7-4.1); Glucose 97 mg/dL (70-100); HEMOLYSIS < 15 (0-50); Potassium 4.1 mmol/L (3.4-5.1); Sodium 137 mmol/L (137-145); Total Protein 7.1 g/dL (6.3-8.2)
[2023-04-08 18:25] LABS: Ur Creatinine Normal (Normal); Ur Specific Gravity Normal (Normal); Urine pH Normal (Normal)
[2023-04-08 18:26] LABS: UR Morphine/Opiate cutoff 300 Negative (Negative); Urine Amphetamines Positive (Negative); Urine Barbiturates Negative (Negative); Urine Benzodiazepines Negative (Negative); Urine Cocaine Negative (Negative); Urine MDMA Negative (Negative); Urine Methadone Negative (Negative); Urine Methamphetamines Positive (Negative); Urine Oxycodone Negative (Negative); Urine Phencyclidine Negative (Negative); Urine Tetrahydrocannabinol Positive (Negative); Urine Tricyclic Antidepressant Negative (Negative)
--- NOTE | 2023-04-08 18:34 | ED.NAVMDI ---
HPI - Nausea/Vomiting/Diarrhea General Chief complaint: Nausea/Vomiting/Diarrhea Stated complaint: dizzy/dont feel right/covered in S Time Seen by Provider: 04/08/23 18:07 Source: patient Mode of arrival: Ambulatory History of Present Illness HPI Narrative: Patient is a 52-year-old male history of methamphetamine abuse, housing instability living in his car presenting today with explosive diarrhea and nausea. He was feeling little bit dizzy. Nursing reports that he was covered in stool and required showering in the ED. his clothes have likely been thrown out and he has been given paper scrubs. He has not had any further vomiting or diarrhea here in the ED. social work interviewed him and he is at his baseline paranoia. He denies any suicidal or homicidal ideations. He is overall feeling a bit bryan.r Related Data Previous Rx's Medication Instructions Recorded ondansetron 4 mg disintegrating 4 mg PO Q8H PRN nausea and 04/08/23 tablet vomiting #20 tabs Allergies Allergy/AdvReac Type Severity Reaction Status Date / Time Penicillins Allergy Verified 11/16/22 20:20 Patient History Social History Smoking Status: Current every day smoker Smoking Status: Current every day smoker tobacco type: cigarettes and cigars alcohol intake frequency: a few times a month Substance Use Type: opiates and methamphetamine Exam Initial Vital Signs Initial Vital Signs: Vital Signs Temperature 97.3 F L 04/08/23 14:45 Pulse Rate 96 H 04/08/23 14:45 Respiratory Rate 22 04/08/23 14:45 Blood Pressure 127/81 04/08/23 14:45 Pulse Oximetry 100 04/08/23 14:45 Oxygen Delivery Method Room Air 04/08/23 14:45 GENERAL: Alert now clean 52-year-old male HEENT: Head atraumatic,EOMI, pupils reactive, face symmetric, moist mucous membranes CARDIOVASCULAR: Regular rate and rhythm without murmurs, rubs or gallops. RESPIRATORY: Breath sounds equal bilaterally, no wheezes rales or rhonchi. ABDOMEN: Soft, nontender. Normoactive bowel sounds all 4 quadrants. No guarding or rebound. EXTREMITIES: Normal range of motion, no clubbing or edema. Neurovascularly intact NEUROLOGICAL: Moving all extremities no gross deficits SKIN: Warm, dry, no laceration, no petechiae, no rashes or lesions. Course Orders Ordered: ED Orders 04/08/23 17:35 CBC Auto Diff [Complete Blood Count AUTO DIFF] Stat Comprehensive Metabolic Panel Stat 04/08/23 18:07 Ictotest Urine Stat Urine Drug Screen, Rapid Stat Discontinued Medications Ondansetron HCl (Ondansetron 4 Mg Odt) 4 mg PO NOW ONE Stop: 04/08/23 15:51 Last Admin: 04/08/23 15:55 Dose: 4 mg Documented By: NGUYEN Ondansetron HCl (Ondansetron 4 Mg Odt Prepack) 1 bottle MISC DIRECTED ONE Stop: 04/08/23 18:52 Last Admin: 04/08/23 19:11 Dose: 1 bottle Documented By: NGUYEN Vital Signs Vital signs: Vital Signs - 8 hr 04/08/23 18:43 04/08/23 18:47 Pulse Rate 76 Blood Pressure 117/70 Pulse Oximetry 100 Oxygen Delivery Method Room Air MDM - Nausea/Vomiting/Diarrhea Lab Data 04/08/23 17:35 04/08/23 17:35 Labs: Lab Results 04/08/23 04/08/23 Range/Units 17:35 18:07 WBC 9.7 (4.5-11.0) X10^3/uL RBC 4.45 L (4.5-5.9) X10^6/uL Hgb 13.3 L (13.5-17.5) g/dL Hct 39.2 L (41-53) % MCV 88.1 (80-100) fL MCH 29.9 (26-34) PG MCHC 34.0 (30-36) % RDW 13.9 (11.6-14.8) % Plt Count 255 (150-400) X10^3/uL Neut % (Auto) 72.8 (50-75) % Lymph % (Auto) 15.4 L (25-40) % [place] % (Auto) 8.4 (3-14) % Eos % (Auto) 2.7 (2-4) % Baso % (Auto) 0.7 (0-2) % Neut # (Auto) 7100 H (5828-9615) /uL Lymph # (Auto) 1500 (7569-2170) /uL [place] # (Auto) 800 (0-900) /uL Eos # (Auto) 300 (0-450) /uL Baso # (Auto) 100 (0-100) /uL Sodium 137 (137-145) mmol/L Potassium 4.1 (3.4-5.1) mmol/L Chloride 104 (98-107) mmol/L Carbon Dioxide 25 (22-32) mmol/L BUN 27 H (9-20) mg/dL Creatinine 0.80 (0.66-1.25) mg/dL Estimated GFR > 60 (>60) mL/min BUN/Creatinine Ratio 33.8 H (6-22) Glucose 97 (70-100) mg/dL Calcium 8.7 (8.4-10.2) mg/dL Total Bilirubin 0.8 (0.2-1.3) mg/dL AST 22 (17-59) IU/L ALT 14 (<50) IU/L Alkaline Phosphatase 79 (38-126) U/L Total Protein 7.1 (6.3-8.2) g/dL Albumin 3.9 (3.5-5.0) g/dL Globulin 3.2 (1.7-4.1) g/dL Albumin/Globulin Ratio 1.2 (1.0-2.8) Ur Bilirubin Confirm TNP U Opiates 300ng/mL cut Negative (Negative) Ur Oxycodone Screen Negative (Negative) Urine Methadone Screen Negative (Negative) Ur Barbiturates Screen Negative (Negative) U Tricyclic Antidepress Negative (Negative) Ur Phencyclidine Scrn Negative (Negative) Ur Amphetamines Screen Positive H (Negative) U Methamphetamines Scrn Positive H (Negative) Ur MDMA Scrn (Ecstasy) Negative (Negative) U Benzodiazepines Scrn Negative (Negative) Urine Cocaine Screen Negative (Negative) U Marijuana (THC) Screen Positive H (Negative) Urine pH Normal (Normal) Urine Specific [place] Normal (Normal) Ur Creatinine Normal (Normal) Urine Dip Bedside Urine Glucose Negative Bedside Urine Bilirubin + 1 Bedside Urine Ketone - Negative Urine Specific [place] 1.030 Bedside Urine Occult Blood - Negative Bedside Urine pH 6.0 Bedside Urine Protein - Negative Bedside Urine Urobilinogen - Negative Bedside Urine Nitrite - Negative Bedside Urine Leukocytes - Negative Esterase MDM Narrative Medical decision making narrative: Patient 52-year-old male presents today with nausea vomiting diarrhea. Apparently he was having significant diarrhea. Vitals are stable. He has been showered and cleaned given clean clothes. Blood work has been reviewed he has no evidence of electrolyte abnormality, he has some mild JOE with a BUN of 27 and a creatinine of 0.8. He is drinking fluids. He has no anemia or leukocytosis. He has not tachycardic or hypotensive. This time he has given a prepack of Zofran and a prescription. Instructed to increase fluids as tolerated. Seems to be at his baseline paranoia but not currently expressing paranoid now. Evaluated by social work does not meet inpatient or involuntary criteria. Discharge Plan Departure Patient Disposition: Home Clinical Impression: Gastroenteritis Instructions: DI for Viral Gastroenteritis -- Adult Activity Restrictions/Additional Instructions: *You have been diagnosed with gastroenteritis *What to do: At this time increase fluids as tolerated. Recommend Gatorade, Pedialyte, water, juice *Continue to take medications as directed Zofran 4 mg every 8 hours if needed for nausea or vomiting-- [facility] *Follow up with your primary care provider in 2-3 days or call [phone] *Return to ER if you should have persistent vomiting and diarrhea, not tolerating fluids, passing or any new, worsening or concerning symptoms Prescriptions: New ondansetron 4 mg tablet,disintegrating 4 mg PO Q8H PRN (Reason: nausea and vomiting) Qty: 20 0RF Referrals: Miscellaneous,Doctor, [Primary Care Provider] - Stand Alone Forms: Patient Portal/API
--- NOTE | 2023-04-08 18:41 | PC.NURSE ---
patient came into today because hes been having nausea, and diarrhea for 8-12 hours. he had stool on him at time of intake to the ED. He was given a shower and new paper scrubs and has been cleaned up.
[2023-04-08 18:43] VITALS: PULSE 76; O2SAT 100
[2023-04-08 18:47] VITALS: BP 117/70
[2023-04-08] MEDS: ONDANSETRON 4 MG ODT PREPACK 1 BOTTLE MISC (19:11)
== END 2023-04-08 19:23 | disposition home or self-care (01) ==
PROVIDERS: Emergency Medicine; Emergency Provider Emergency Medicine
DX: K52.9 Noninfective gastroenteritis and colitis, unspecified (principal)
CPT/HCPCS: 36415; 80053; 80305; 81003; 85025; 99283; 99284

== ENCOUNTER 2023-04-09 22:50 | Emergency (ER) | payer OTHER, MEDICAID, SELFPAY ==
[2023-04-09 22:55] VITALS: BP 171/99; PULSE 100; RESP 16; TEMP 37.1; O2SAT 97; BMI 26.6
[2023-04-09 23:46] LABS: Ur Creatinine Normal (Normal); Ur Specific Gravity Normal (Normal); Urine Tetrahydrocannabinol Positive (Negative); Urine pH Normal (Normal)
[2023-04-09 23:47] LABS: UR Morphine/Opiate cutoff 300 Negative (Negative); Urine Amphetamines Positive (Negative); Urine Barbiturates Negative (Negative); Urine Benzodiazepines Negative (Negative); Urine Cocaine Negative (Negative); Urine MDMA Negative (Negative); Urine Methadone Negative (Negative); Urine Methamphetamines Positive (Negative); Urine Oxycodone Negative (Negative); Urine Phencyclidine Negative (Negative); Urine Tricyclic Antidepressant Negative (Negative)
[2023-04-10 00:02] LABS: Alanine Aminotransferase 15 IU/L (<50); Albumin 4.1 g/dL (3.5-5.0); Albumin Globulin Ratio 1.3 (1.0-2.8); Alkaline Phosphatase 69 U/L (38-126); Aspartate Aminotransferase 20 IU/L (17-59); BUN Creatinine Ratio 18.2 (6-22); Blood Urea Nitrogen 16 mg/dL (9-20); Carbon Dioxide 27 mmol/L (22-32); Chloride 105 mmol/L (98-107); Estimated Glomerular Filt Rate > 60 mL/min (>60); Ethanol (ETOH) < 10 mg/dL; Globulin 3.2 g/dL (1.7-4.1); Glucose 126 mg/dL (70-100); HEMOLYSIS < 15 (0-50); Potassium 4.1 mmol/L (3.4-5.1); Sodium 138 mmol/L (137-145); Total Protein 7.3 g/dL (6.3-8.2)
[2023-04-10 00:07] LABS: Add Manual Diff / Slide Review NO; Basophils Absolute Auto 0 /uL (0-100); Basophils Percent Auto 0.5 % (0-2); Eosinophils Absolute Auto 0 /uL (0-450); Eosinophils Percent Auto 0.5 % (2-4); Hematocrit 38.9 % (41-53); Hemoglobin 13.2 g/dL (13.5-17.5); Lymphocytes Absolute Auto 2300 /uL (1100-4500); Lymphocytes Percent Auto 27.1 % (25-40); Mean Corpuscular HGB Conc 33.8 % (30-36); Mean Corpuscular Hemoglobin 30.2 PG (26-34); Mean Corpuscular Volume 89.2 fL (80-100); Monocytes Absolute Auto 600 /uL (0-900); Monocytes Percent Auto 7.7 % (3-14); Neutrophils Absolute Auto 5400 /uL (1500-7000); Neutrophils Percent Auto 64.2 % (50-75); Platelet Count 281 X10^3/uL (150-400); Red Blood Cell Count 4.36 X10^6/uL (4.5-5.9); Red Cell Distribution Width 13.9 % (11.6-14.8); White Blood Cell Count 8.4 X10^3/uL (4.5-11.0)
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
[2023-04-10 00:42] LABS: TSH w/ Reflex to FT4 2.35 uIU/mL (0.47-4.68)
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
[2023-04-10 04:26] LABS: COVID19 -Nasal RAPID Negative (Negative)
[2023-04-10 07:57] VITALS: PULSE 88; RESP 18; O2SAT 98
--- NOTE | 2023-04-10 07:57 | PC.NURSE ---
Pt given a snack bag to take with him, sandwich w/ milk and pudding.
--- NOTE | 2023-04-10 07:59 | PC.NURSE ---
Pt given resources for treatment centers and housing.
== END 2023-04-10 07:59 | disposition home or self-care (01) ==
PROVIDERS: Emergency Provider Emergency Medicine
DX: F20.9 Schizophrenia, unspecified (principal); F15.10 Other stimulant abuse, uncomplicated; F32.A Depression, unspecified; Z20.822 Contact with and (suspected) exposure to COVID-19
CPT/HCPCS: 36415; 80053; 80305; 80320; 81003; 84443; 85025; 87635; 99284

== ENCOUNTER 2023-08-03 00:38 | Emergency (ER) | payer OTHER, MEDICAID, SELFPAY ==
[2023-08-03 00:40] VITALS: BP 170/88; PULSE 108; RESP 16; TEMP 37.3; O2SAT 99; BMI 27.2
--- NOTE | 2023-08-03 01:32 | PC.NURSE ---
ELECTRIC MOTOR REPAIRMAN note: Patient's belongings are in locker six with his name
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
[2023-08-03 02:23] LABS: Ur Creatinine Normal (Normal); Ur Specific Gravity Normal (Normal); Urine Amphetamines Positive (Negative); Urine Cocaine Negative (Negative); Urine Methamphetamines Positive (Negative); Urine Opiates Negative (Negative); Urine Phencyclidine Negative (Negative); Urine THC Negative (Negative); Urine pH Normal (Normal)
[2023-08-03 02:24] LABS: Urine Barbiturates Negative (Negative); Urine Benzodiazepines Negative (Negative); Urine MDMA Positive (Negative)
[2023-08-03 02:25] LABS: Urine Methadone Negative (Negative); Urine Oxycodone Negative (Negative); Urine Tricyclic Antidepressant Negative (Negative)
[2023-08-03 02:29] LABS: Appearance Urine UA CLEAR; Bilirubin Urine UA NEGATIVE (NEGATIVE); Color Urine UA YELLOW; Glucose Urine UA NEGATIVE (Negative); Ketones Urine UA TRACE (NEGATIVE); Leukocyte Esterase Urine UA NEGATIVE (NEGATIVE); Nitrite Urine UA NEGATIVE (Negative); Occult Blood Urine UA NEGATIVE (Negative); Protein Urine UA 1+ (Negative); Specific Gravity Urine UA >=1.030 (1.000-1.035)
[2023-08-03 02:34] LABS: Bacteria Urine None Seen; Culture Indicated Urine Cult Not Indicated; RBC Urine None Seen (0-5/HPF); Squamous Epithelial Cell Urine 0-1 /HPF (0-5/HPF); Urine Volume 10mL (spun); WBC Urine None Seen (0-5/HPF)
[2023-08-03 02:40] LABS: Add Manual Diff / Slide Review NO; Basophils Absolute Auto 100 /uL (0-100); Basophils Percent Auto 0.5 % (0-2); Eosinophils Absolute Auto 100 /uL (0-450); Eosinophils Percent Auto 0.8 % (2-4); Hematocrit 36.1 % (41-53); Hemoglobin 12.1 g/dL (13.5-17.5); Lymphocytes Absolute Auto 1200 /uL (1100-4500); Lymphocytes Percent Auto 11.1 % (25-40); Mean Corpuscular HGB Conc 33.6 % (30-36); Mean Corpuscular Hemoglobin 29.9 PG (26-34); Mean Corpuscular Volume 89.1 fL (80-100); Monocytes Absolute Auto 1600 /uL (0-900); Monocytes Percent Auto 15.1 % (3-14); Neutrophils Absolute Auto 7900 /uL (1500-7000); Neutrophils Percent Auto 72.5 % (50-75); Platelet Count 283 X10^3/uL (150-400); Red Blood Cell Count 4.06 X10^6/uL (4.5-5.9); Red Cell Distribution Width 14.1 % (11.6-14.8); White Blood Cell Count 10.9 X10^3/uL (4.5-11.0)
--- NOTE | 2023-08-03 02:50 | PC.NURSE ---
This RN to bedside to speak to pt after he states that he is upset that he lost his friend. Pt states that he wants his life to end and wants this Rn to help him end his life. Pt stating that he has lost everything due to the voices in his head. This RN administering Ativan and putting pt on pulse ox and BP cuff.
[2023-08-03] MEDS: LORazepam 2 MG/ML INJ IV (03:01)
[2023-08-03 03:35] LABS: Acetaminophen < 10 ug/mL (10-30); Alanine Aminotransferase 33 IU/L (<50); Albumin 4.6 g/dL (3.5-5.0); Albumin Globulin Ratio 1.5 (1.0-2.8); Alkaline Phosphatase 75 U/L (38-126); Aspartate Aminotransferase 55 IU/L (17-59); BUN Creatinine Ratio 39.7 (6-22); Bilirubin Total 1.7 mg/dL (0.2-1.3); Blood Urea Nitrogen 25 mg/dL (9-20); Calcium 8.9 mg/dL (8.4-10.2); Carbon Dioxide 24 mmol/L (22-32); Chloride 106 mmol/L (98-107); Estimated Glomerular Filt Rate > 60 mL/min (>60); Ethanol (ETOH) < 10 mg/dL; Globulin 3.1 g/dL (1.7-4.1); Glucose 110 mg/dL (70-100); HEMOLYSIS < 15 (0-50); Potassium 4.2 mmol/L (3.4-5.1); Salicylate < 1.0 mg/dL (<20); Sodium 138 mmol/L (137-145); Total Protein 7.7 g/dL (6.3-8.2)
[2023-08-03 06:34] VITALS: BP 110/61; PULSE 87; RESP 16; O2SAT 99
[2023-08-03 07:52] VITALS: BP 112/68; PULSE 88; RESP 19; O2SAT 98
[2023-08-03 09:53] VITALS: BP 114/67; PULSE 92; RESP 18; O2SAT 98
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
[2023-08-03 13:29] VITALS: BP 122/65; PULSE 90; RESP 17; O2SAT 97
--- NOTE | 2023-08-03 14:03 | CM.SWNOTE ---
ED STONEMASON SUPERVISOR Note: STONEMASON SUPERVISOR called [facility], it was reported that there are 8 male beds available. Clinical packet sent for review. STONEMASON SUPERVISOR Cholo in [place], clinical packet sent for review. Marjan from [facility] called this STONEMASON SUPERVISOR to relay that pt has been accepted at their facility at the 1E unit for voluntary admission. Accepting provider: ANEL Montilla RN to RN report #: [phone] STONEMASON SUPERVISOR called [facility] and scheduled a transport for 1520 for an arrival of 1620 at their facility. STONEMASON SUPERVISOR notified [facility] of ETA. Per pt request, STONEMASON SUPERVISOR called [facility] to report his lost benefits card (ph#[phone]). His benefits card has been deactivated and pt will need to call with an address for new card to be sent. STONEMASON SUPERVISOR relayed number to call to pt (ph#[phone]). JERRICA Sapp
--- NOTE | 2023-08-03 14:32 | PC.NURSE ---
Reassess no change
--- NOTE | 2023-08-03 14:32 | PC.NURSE ---
Reassess no change; pt cooperative
[2023-08-03 15:31] VITALS: BP 112/70; PULSE 90; RESP 16; TEMP 36.6; O2SAT 98
== END 2023-08-03 15:33 | disposition home or self-care (01) ==
PROVIDERS: Emergency Medicine; Emergency Provider Emergency Medicine
DX: F15.159 Other stimulant abuse with stimulant-induced psychotic disorder, unspecified (principal)
CPT/HCPCS: 36415; 80053; 80305; 80320; 80329; 81001; 85025; 96374; 99284; G0480; J2060